=== PATIENT | female | born 1985 | race Caucasian/White ===

== ENCOUNTER → 2022-10-12 | Outpatient (REF) | payer OTHER ==
[2022-10-12 12:24] LABS: BASO # 0.1 10^3/uL (0.0-0.2); BASO % 1.6 % (0.0-1.0); EOS # 0.5 10^3/uL (0.0-0.5); EOS % 7.2 % (0.0-3.0); HEMATOCRIT 42.7 % (36.0-47.0); HEMOGLOBIN 13.7 g/dl (12.0-15.5); LYMPH # 2.1 10^3/uL (1.5-5.0); LYMPH % 31.4 % (24.0-44.0); MEAN CORPUSCULAR HGB CONC 32.1 g/dl (32.0-36.5); MEAN CORPUSCULAR VOLUME 90.3 fl (80.0-96.0); MONO # 0.5 10^3/uL (0.0-0.8); MONO % 7.2 % (2.0-8.0); NEUTROPHILS # 3.5 10^3/uL (1.5-8.5); NEUTROPHILS % 52.2 % (36.0-66.0); PLATELET COUNT, AUTOMATED 238 10^3/uL (150-450); RED BLOOD COUNT 4.73 10^6/uL (4.00-5.40); WHITE BLOOD COUNT 6.7 10^3/uL (4.0-10.0)
[2022-10-12 12:57] LABS: FERRITIN 10.5 NG/ML (7.3-270.7); THYROID STIMULATING HORMONE 0.446 uIU/ML (0.55-4.78)
[2022-10-12 12:58] LABS: ALBUMIN 4.1 G/DL (3.2-5.2); ALKALINE PHOSPHATASE 51 U/L (46-116); ALT/SGPT 13 U/L (7.0-40); AST/SGOT 10 U/L (<34); BILIRUBIN,TOTAL 0.5 MG/DL (0.3-1.2); BLOOD UREA NITROGEN 9 MG/DL (9-23); CARBON DIOXIDE LEVEL 27 MMOL/L (20-31); CHLORIDE LEVEL 106 MMOL/L (98-107); CREATININE FOR GFR 0.88 MG/DL (0.55-1.30); FOLATE 19.7 NG/ML (>5.4); GLOMERULAR FILTRATION RATE > 60.0 (>60); GLUCOSE, FASTING 93 MG/DL (60-100); IRON (FE) 71 UG/DL (50-170); PERCENT SATURATION 20.5 % (13.2-45.0); POTASSIUM SERUM 4.2 MMOL/L (3.5-5.1); SODIUM LEVEL 140 MMOL/L (136-145); TOTAL 25(OH) VITAMIN D 27.7 NG/ML (20.0-100.0); TOTAL IRON BINDING CAPACITY 346 UG/DL (250-425); TOTAL PROTEIN 6.6 G/DL (5.7-8.2)
[2022-10-12 12:59] LABS: VITAMIN B12 LEVEL 525 PG/ML (211-911)
[2022-10-12 13:00] LABS: FREE T4 1.18 NG/DL (0.89-1.76)
== END ==
LOC: M LABWUC 11:45
PROVIDERS: ATTEND Nurse Practitioner Adult Health
DX: E06.3 Autoimmune thyroiditis (principal); R53.83 Other fatigue; R60.9 Edema, unspecified

== ENCOUNTER → 2022-11-12 | Outpatient (CLI) | payer OTHER ==
[2022-11-12 13:37] LABS: FREE T4 1.23 NG/DL (0.89-1.76); THYROID STIMULATING HORMONE 1.228 uIU/ML (0.55-4.78)
== END ==
LOC: M WUC 08:58
PROVIDERS: ATTEND Nurse Practitioner Adult Health
DX: E06.3 Autoimmune thyroiditis (principal)

== ENCOUNTER → 2023-05-05 | Outpatient (CLI) | payer OTHER ==
[2023-05-05 17:21] LABS: THYROID STIMULATING HORMONE 0.277 uIU/ML (0.55-4.78)
[2023-05-05 17:22] LABS: FREE T4 1.12 NG/DL (0.89-1.76)
== END ==
LOC: M WUC 14:42
PROVIDERS: ATTEND Nurse Practitioner Adult Health
DX: E06.3 Autoimmune thyroiditis (principal); Z11.59 Encounter for screening for other viral diseases

== ENCOUNTER → 2024-03-03 | Outpatient (REF) | payer OTHER | LOC: M LAB REF 17:29 | PROVIDERS: ATTEND Physician Assistant | DX: N39.0 Urinary tract infection, site not specified (principal) ==

== ENCOUNTER → 2024-07-05 | Outpatient (CLI) | payer OTHER | LOC: M SLEEP HO 10:50 | PROVIDERS: ATTEND Nurse Practitioner Adult Health | DX: G47.33 Obstructive sleep apnea (adult) (pediatric) (principal); R53.83 Other fatigue ==

== ENCOUNTER → 2024-12-15 | Outpatient (CLI) | payer OTHER | LOC: M RAD 07:36 | PROVIDERS: ATTEND Family Medicine | DX: M54.16 Radiculopathy, lumbar region (principal) ==